=== PATIENT | male | born 1980 | race Caucasian/White ===

== ENCOUNTER 2016-10-17 19:39 | Inpatient (IN) | payer BC, OTHER ==
[~2016-10-17] VITALS: Ht 172.7 cm; Wt 94.1 kg
[2016-10-17] MEDS ORDERED: SOD CHLORIDE 0.9% 1,000 ML IV STA (22:38)
[2016-10-17] MEDS ORDERED: ONDANSETRON 4 MG INJ IV STA (22:38)
--- NOTE | 2016-10-17 22:50 | ERD ---
ER Documentation Chief Complaint Date/Time DATE: 10/17/16 TIME: 22:45 Chief Complaint body pain today HPI 36-year-old male presents here in emergency department for complaints of bodyaches chills Fernando muscle pains started 2 days ago worse today. Patient says cramping all over the body and in the muscles, 4/10 scale, accompanied with sweating. Patient drank a lot of water but became nauseous. Patient denies any abdominal pain, flank pain. Patient denies any discolored urine. Patient denies hematuria or dysuria. Patient denies any diarrhea or constipation. Patient denies any cough shortness of breath or wheezing. Patient denies any chest. Patient denies any dyspnea on exertion or dyspnea on lying down. Patient denies any dizziness. Patient states that he has been working and reviewed at this time for the last 3 days, has history of of frequent heat exhaustion, also patient just started to take Vyvanse again after being off it for 3 weeks. ROS All systems reviewed and are negative except as per history of present illness. Medications Home Meds Reported Medications [none] Unknown Strength No Conflict Check 10/17/16 Allergies Allergies: Coded Allergies: No Known Allergy (Unverified , 10/17/16) PMhx/Soc History of Surgery: Yes (SHOULDER SX) Anesthesia Reaction: No Hx Neurological Disorder: No Hx Respiratory Disorders: No Hx Cardiac Disorders: Yes (HTN) Hx Psychiatric Problems: No Hx Miscellaneous Medical Probl: No Hx Alcohol Use: Yes (SOCIALLY) Hx Substance Use: No Hx Tobacco Use: No Smoking Status: Never smoker FmHx Family History: No coronary disease, No diabetes, No other Physical Exam Vitals Vital Signs Date Time Temp Pulse Resp B/P Pulse Ox O2 Delivery O2 Flow Rate FiO2 10/17/16 19:41 98.3 88 20 148/90 100 Physical Exam GENERAL: The patient is well developed and appropriate for usual state of health, in no apparent distress. Noted cold and clammy skin, sweating. CHEST: Clear to auscultation bilaterally. There are no rales, wheezes or rhonchi. HEART: Regular rate and rhythm. No murmurs, clicks, rubs or gallops. No S3 or S4. ABDOMEN: Soft, nontender and nondistended. Good bowel sounds. No rebound or guarding. No gross peritonitis. No gross organomegaly or masses. No Reese sign or McBurney point tenderness. BACK: No midline or flank tenderness. EXTREMITIES: Equal pulses bilaterally. There is no peripheral clubbing, cyanosis or edema. No focal swelling or erythema. Full range of motion. Grossly neurovascularly intact. NEURO: Alert and oriented. Cranial nerves 2-12 intact. Motor strength in all 4 extremities with 5/5 strength. Sensation grossly intact. Normal speech and gait. SKIN: With some bluish discoloration in the bilateral hands and bilateral lower extremities noted. There is no apparent rash or petechia. The skin is warm and dry. HEMATOLOGIC AND LYMPHATIC: There is no evidence of excessive bruising or lymphedema. No gross cervical, axillary, or inguinal lymphadenopathy. Result Diagram: 10/17/16225410/17/162254 Results 24 hrs Laboratory Tests Test 10/17/16 22:55 White Blood Count 11.410^3/ul Red Blood Count 5.5010^6/ul Hemoglobin 16.8g/dl Hematocrit 49.7% Mean Corpuscular Volume 90.4fl Mean Corpuscular Hemoglobin 30.5pg Mean Corpuscular Hemoglobin Concent 33.8g/dl Red Cell Distribution Width 13.0% Platelet Count 46842^3/UL Mean Platelet Volume 9.5fl Neutrophils % 77.5% Lymphocytes % 11.2% Monocytes % 10.4% Eosinophils % 0.2% Basophils % 0.2% Nucleated Red Blood Cells % 0.0/100WBC Neutrophils # 8.810^3/ul Lymphocytes # 1.310^3/ul Monocytes # 1.210^3/ul Eosinophils # 0.010^3/ul Basophils # 0.010^3/ul Nucleated Red Blood Cells # 0.010^3/ul Erythrocyte Sedimentation Rate 6mm/Hr Sodium Level 129mmol/L Potassium Level 3.7mmol/L Chloride Level 85mmol/L Carbon Dioxide Level 25mmol/L Anion Gap 23 Blood Urea Nitrogen 36mg/dl Creatinine 2.21mg/dl Glucose Level 135mg/dl Calcium Level 10.5mg/dl Total Bilirubin 0.8mg/dl Direct Bilirubin 0.00mg/dl Indirect Bilirubin 0.8mg/dl Aspartate Amino Transf (AST/SGOT) 240IU/L Alanine Aminotransferase (ALT/SGPT) 155IU/L Alkaline Phosphatase 72IU/L Creatine Kinase 79505SS/L Troponin I < 0.012ng/ml C-Reactive Protein 4.0mg/dl Total Protein 9.9g/dl Albumin 5.5g/dl Globulin 4.40g/dl Albumin/Globulin Ratio 1.25 Lipase 88U/L Current Medications Medications (Trade) Dose Ordered Sig/Georgina Route PRN Reason Start Time Stop Time Status Last Admin Dose Admin Sodium Chloride (NS) 1,000 ml @ 1,000 mls/hr Q1H STAT IV 10/17/16 22:38 10/17/16 23:37 DC 10/17/16 22:55 Ondansetron HCl 4 mg 4 mg ONCE STAT IV 10/17/16 22:38 10/17/16 22:40 DC 10/17/16 22:55 Sodium Chloride 1,000 ml @ 1,000 mls/hr Q1H ONCE IV 10/18/16 00:30 10/18/16 01:29 DC 10/18/16 00:21 Sodium Chloride (NS) 2,000 ml @ 1,000 mls/hr Q2H ONCE IV 10/18/16 00:30 10/18/16 02:29 Normal saline IV bolus was given here in emergency department for rehydration, patient tolerated IV fluids.Patient was given Zofran here in the emergency department. After treatment, patient was able to tolerate po fluids here in the emergency department without any vomiting. There is no signs and symptoms of dehydration. EKG was done, read by me and is sinus tachycardia at 111 bpm, normal axis, there is no ST changes or changes in the EKG that indicates any cardiac emergencies at this time. Patient's EKG was also reviewed by Dr. Wilkins. Impression: no acute findings on EKG Procedures/MDM Medical decision making: Patient symptoms are most likely consistent with rhabdomyolysis. Possibly caused by heat exhaustion, also from taking Vyvanse which is a form of amphetamine. Patient was rehydrated here in emergency department, had elevated creatinine and electrolyte imbalance from dehydration. Total creatinine kinase is 13,0059, markedly elevated, 4 L of IV fluids normal saline was given here in emergency department as per discussion with my attending physician, Dr. Wilkins, patient will the admitted to the hospital for further rehydration and treatment. Departure Diagnosis: Primary Impression: Rhabdomyolysis Rhabdomyolysis type: non-traumatic Qualified Code: M62.82 - Non-traumatic rhabdomyolysis Condition: Stable BLESSING COLVIN NP October 17, 2016 22:50
[2016-10-17 23:13] LABS: ADD SCAN DIFF NO
[2016-10-17 23:20] LABS: BASOPHILS % 0.2 % (0.0-2.0); EOSINOPHILS % 0.2 % (0.0-7.0); HEMATOCRIT 49.7 % (42.0-52.0); HEMOGLOBIN 16.8 g/dl (14.0-18.0); LYMPHOCYTES # 1.3 10^3/ul (0.8-2.9); LYMPHOCYTES % 11.2 % (15.0-51.0); MEAN CORPUSCULAR HEMOGLOBIN 30.5 pg (29.0-33.0); MEAN CORPUSCULAR HGB CONC 33.8 g/dl (32.0-37.0); MEAN CORPUSCULAR VOLUME 90.4 fl (82.0-101.0); MEAN PLATELET VOLUME 9.5 fl (7.4-10.4); MONOCYTE # 1.2 10^3/ul (0.3-0.9); MONOCYTES % 10.4 % (0.0-11.0); NEUTROPHIL # 8.8 10^3/ul (1.6-7.5); NEUTROPHILS % 77.5 % (39.0-77.0); PLATELET COUNT 284 10^3/UL (140-415); WHITE BLOOD COUNT 11.4 10^3/ul (4.8-10.8)
[2016-10-17 23:41] LABS: ALBUMIN 5.5 g/dl (3.3-4.9); ALBUMIN/GLOBULIN RATIO 1.25; BILIRUBIN,INDIRECT 0.8 mg/dl (0-1.1); BILIRUBIN,TOTAL 0.8 mg/dl (0.2-1.3); CALCIUM 10.5 mg/dl (8.4-10.2); CREATININE 2.21 mg/dl (0.61-1.24); POTASSIUM 3.7 mmol/L (3.5-5.1); TOTAL PROTEIN 9.9 g/dl (6.1-8.1)
[2016-10-18] VITALS (10 sets, daily range): BP systolic 138–162; BP diastolic 71–92; PULSE 93–106; RESP 18; TEMP 98.3; Ht 172.7 cm; Wt 94.1 kg
[2016-10-18] MEDS ORDERED: SOD CHLORIDE 0.9% 2,000 ML IV ONE (00:30)
[2016-10-18] MEDS ORDERED: SOD CHLORIDE 0.9% 1,000 ML IV ONE (00:30)
[2016-10-18 02:29] LABS: ADD UMIC YES; URINE BILIRUBIN (Dip) NEGATIVE (NEGATIVE); URINE BLOOD (Dip) 3+ (NEGATIVE); URINE COLOR LT. YELLOW (YELLOW); URINE GLUCOSE (Dip) NEGATIVE (NEGATIVE); URINE KETONES (Dip) NEGATIVE (NEGATIVE); URINE LEUKOCYTE ESTERASE (Dip) NEGATIVE (NEGATIVE); URINE NITRITE (Dip) NEGATIVE (NEGATIVE); URINE TOTAL PROTEIN (Dip) 2+ (NEGATIVE); URINE UROBILINOGEN (Dip) 0.2 E.U./dL (0.1-1.0)
[2016-10-18 02:47] LABS: MUCUS,URINE MODERATE; SQUAMOUS EPITHELIAL CELL,UR FEW
[2016-10-18] MEDS ORDERED: LISI20TA11 PO (03:25)
[2016-10-18] MEDS ORDERED: ALPR0.5T6 PO (03:28)
[2016-10-18] MEDS ORDERED: LISD70CA5 PO (03:30)
[2016-10-18] MEDS ORDERED: IBUP200C11 PO (03:36)
[2016-10-18] MEDS ORDERED: MULTI PO (03:36)
[2016-10-18 03:39] LABS: BARBITURATES NEGATIVE (NEGATIVE); BENZODIAZEPINES POSITIVE (NEGATIVE); CANNABINOIDS NEGATIVE (NEGATIVE); COCAINE NEGATIVE (NEGATIVE); OPIATES NEGATIVE (NEGATIVE)
[2016-10-18] MEDS ORDERED: ONDANSETRON 4 MG INJ IV PRN (05:30)
[2016-10-18] MEDS ORDERED: ZOLPIDEM 5 MG TAB PO PRN (05:30)
[2016-10-18] MEDS ORDERED: NACL 0.9% 3 ML SYG IV SCH (05:30)
[2016-10-18] MEDS ORDERED: ACETAMINOPHEN 325 MG TAB PO PRN (05:30)
[2016-10-18] MEDS: SOD CHLORIDE 0.9% 1,000 ML IV SCH ×4 (05:55→20:17)
--- NOTE | 2016-10-18 05:58 | HP ---
Date/Time of Note Date/Time of Note DATE: 10/18/16 TIME: 05:36 Assessment/Plan VTE Prophylaxis VTE Prophylaxis Intervention: other (Hold at this time secondary to rhabdomyolysis) Lines/Catheters IV [facility]ter Type (from [email or web address] Peripheral IV Central line still needed: No Urinary Cath still in place: No Assessment/Plan Chief Complaint/Hosp Course This is a 36-year-old male being admitted to telemetry for: #1 rhabdomyolysis: Secondary likely to heat exhaustion versus amphetamine use. CK total 13,500. 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 He also has recently started Vyvanse after not taking it for a couple of weeks. In the ED patient received fluid resuscitation with normal saline, will continue normal saline at 200 cc an hour. Will check electrolytes every 6 hours we will keep a close eye on potassium. Will also order repeat CK total. #2 FREEDOM: Creatinine 2.2 this likely appears to be acute in nature though we do not have a previous result. Continue IV fluid management at this time and continue to monitor kidney function. #3 sinus tachycardia: Likely secondary to initial pain on admission, EKG also shows sinus tach with no ST or T-wave abnormalities. We will continue to follow on telemetry. #4 elevated LFTs. Patient at this time is not complaining of any right upper quadrant pain. Does not appear to be any hepatomegaly appreciated on exam. Repeat CMP to see if the values begin to trend down. Consider hepatitis panel and right upper quadrant ultrasound as clinically indicated #5 hypertension: We will hold lisinopril at this time secondary to elevated creatinine. Hydralazine as needed #6 anxiety: Xanax as needed #7 insomnia: Zolpidem 5 mg as needed #8 ADHD: We will hold Vyvanse at this time, this also could be contributing to this as amphetamines can cause rhabdo. #9 DVT and GI prophylaxis, at the present time will hold off on any chemical and mechanical DVT prophylaxis secondary to patient's rhabdomyolysis, no GI reflux is indicated at this time. Problems: HPI/ROS Admit Date/Time Admit Date/Time 10/18/2016 Hx of Present Illness 36-year-old male presents here in emergency department for complaints of bodyaches chills Saturday muscle pains started 2 days ago worse today. Patient says cramping all over the body and in the muscles, 4/10 scale, accompanied with sweating. Patient drank a lot of water but became nauseous. Patient denies any abdominal pain, flank pain. Patient denies any discolored urine. Patient denies hematuria or dysuria. Patient denies any diarrhea or constipation. Patient denies any cough shortness of breath or wheezing. Patient denies any chest. Patient denies any dyspnea on exertion or dyspnea on lying down. Patient denies any dizziness. Patient has a history of ADD and he also has been taking Vyvanse which she recently just restarted after not having taken it for 3 weeks. Allergies: NKDA Medications: See AUG ROS Const: Negative except for what is mentioned in the HPI Eyes : No pain discharge or redness or change in visual acuity ENT: No pain, sore throat, congestion, congestion, dysphagia or discharge Respiratory: No shortness of breath, cough, sputum, wheezing, or pleuritic pain Cardiovascular: No chest pain, palpitation, PND, or edema GI : no change in appetite, abdominal pain, nausea, vomiting, diarrhea, constipation, or change in the color his stool Genitourinary: No dysuria, hematuria, flank pain , discharge or CVA tenderness Musculoskeletal: Negative except for what was mentioned in the HPI Skin: No rash, bruising or hives Neuro: No headache, dizziness, syncope, seizure, focal weakness Endocrine: No polyuria, polydipsia, temperature intolerance Psych: No hallucination, depression, anxiety or suicidal ideation PMH/Family/Social Past Medical History ADD, anxiety, hypertension, insomnia Past Surgical History Right shoulder surgery Family History Significant Family History: hypertension Social History Alcohol Use: occasionally Smoking Status: Never smoker Drug Use: none Exam/Review of Systems Vital Signs Vitals Vital Signs Date Time Temp Pulse Resp B/P Pulse Ox O2 Delivery O2 Flow Rate FiO2 10/18/16 04:10 98.3 104 17 162/96 100 Room Air Intake and Output 10/17/16 10/17/16 10/18/16 15:00 23:00 07:00 Output Total 700 ml Balance -700 ml Exam Exam General: Patient is well-developed well-nourished male presently in no acute distress The patient is alert oriented -3 HEENT: Atraumatic, normocephalic. The pupils are equal, round and reactive. Extraocular motor are intact Neck: Supple with full range of motion. No rigidity or meningismus Chest: Nontender Lungs: Clear to auscultation bilaterally no crackles rales or wheezing Heart: Normal S1-S2, Regular rhythm and rate. No murmur, Abdomen: Soft , nontender, nondistended , bowel sounds are present. No guarding no rebound tenderness , No masses or organomegaly. No costovertebral temporal angle mass Extremities: Normal to inspection, no edema no cyanosis, nontender to palpation , no swelling noted lower extremities, bilateral lower extremities do not appear tight Neurologic: Normal mental status, speech normal, cranial nerves II through XII are intact, motor and sensory are intact, no focal weakness Additional Comments EKG: Sinus tachycardia at 111 bpm, no ST-T wave abnormalities noted Labs Result Diagram: 10/17/16225410/17/162254 Medications Medications Current Medications Sodium Chloride (NS) 1,000 ml @ 200 mls/hr Q5H IV ; Start 10/18/16 at 05:17; Status UNV Ondansetron HCl (Zofran Inj) 4 mg Q6H PRN IV NAUSEA AND/OR VOMITING; Start 10/18 at 05:30; Status UNV Acetaminophen (Tylenol Tab) 650 mg Q6H PRN PO PAIN LEVEL 1-3 OR FEVER; Start at 05:30; Status UNV Zolpidem Tartrate (Ambien) 5 mg QHS PRN PO INSOMNIA; Start 10/18/16 at 05:30; Status UNV LESLIE DUMONT October 18, 2016 05:53
[2016-10-18] MEDS ORDERED: hydrALAzine 20 MG INJ IV PRN (06:00)
[2016-10-18] MEDS ORDERED: ALPRAZOLAM 0.5 MG TAB PO SCH (09:00)
[2016-10-18] MEDS ORDERED: LORAZEPAM 2 MG INJ IV ONE (10:30)
[2016-10-18] MEDS ORDERED: ALPRAZOLAM 0.5 MG TAB PO PRN (11:00)
[2016-10-18 11:48] LABS: ALBUMIN 4.8 g/dl (3.3-4.9); POTASSIUM 3.8 mmol/L (3.5-5.1)
[2016-10-18 11:50] LABS: CREATININE 1.04 mg/dl (0.61-1.24); TOTAL PROTEIN 7.2 g/dl (6.1-8.1)
[2016-10-18 11:51] LABS: CALCIUM 8.4 mg/dl (8.4-10.2)
[2016-10-18 11:55] LABS: BILIRUBIN,INDIRECT 0.6 mg/dl (0-1.1); BILIRUBIN,TOTAL 0.6 mg/dl (0.2-1.3)
--- NOTE | 2016-10-18 13:29 | CONS ---
DATE OF ADMISSION: 10/18/2016 DATE OF CONSULTATION: 10/18/2016 REFERRING PHYSICIAN: Dr. Marcano. REASON FOR CONSULTATION: Acute kidney injury, acute rhabdomyolysis. HISTORY OF PRESENT ILLNESS: This is a 36-year-old male who presented to the emergency room with a c omplaint of body aches, chills, emotional pain started 2 days ago. The patient states he started guerin ving cramping all over his body in the muscles, 4/10. He drank a lot of water, become nauseous. He denies any abdominal pain, fever and chills. The patient has a history of ADD and has been taking Vyvanse which he recently just started after not having taken for 3 weeks. The patient is noted to have acute kidney injury with a creatinine of 2.2, BUN of 36, potassium was normal, but he was hypon atremic with sodium of 129. The patient had a CK total of 13,059. He was admitted to the med/surg floor, has been started on IV fluid hydration and renal has been consulted for acute kidney injury, acute rhabdomyolysis and severe hyponatremia. At the time of my evaluations, now the patient feels much better. He denies any nausea, but he is s till having this intermittent muscle cramps and pain. Denies any chest pain, palpitation, headache, dizziness, blurry vision, constipation, diarrhea, dysuria, increased urinary frequency. REVIEW OF SYSTEMS: Positive for generalized body aches, muscle aches, fever or chills. Other revie w of systems has been obtained and is negative except what is mentioned in the history of present il lness. PAST MEDICAL HISTORY: History of anxiety, ADD, hypertension, insomnia. PAST SURGICAL HISTORY: Right shoulder surgery. FAMILY HISTORY: Hypertension. SOCIAL HISTORY: Occasionally uses alcohol and never smoked. No recreational drug use as per the [place]. PHYSICAL EXAMINATION: VITAL SIGNS: Temperature 98.2, heart rate 99, respiration 18, blood pressure 139/73. Patient has b een tachycardic up to heart rate 110, saturation 99% on room air. GENERAL: Awake, alert, in moderate distress. HEENT: Normal. Oropharynx clear. NECK: Supple, no JVD, no lymphadenopathy. LUNGS: Clear to auscultation. No crackles, no wheezes. HEART: S1, S2, tachycardia, no murmur. ABDOMEN: Soft, nontender, nondistended. Bowel sounds are present. EXTREMITIES: No clubbing, cyanosis, or edema. NEUROLOGICAL: Nonfocal, intact. PSYCHIATRIC: Appropriate affect and mood. LABORATORY DATA/DIAGNOSTIC IMAGING: Urine toxicology positive for amphetamines and benzodiazepines. Sodium 129, potassium 3.7, chloride 85, bicarbonate 25, BUN 36, creatinine 2.2, glucose 135, calciu m 10.5. LFTs are slightly elevated. A CK total 13,059, albumin 5.5. WBC 11.4, hemoglobin 16.8, javi telet count 284, urinalysis is negative for any infections, 3+ hemoglobin, 2+ total protein. IMPRESSION: This is a 36-year-old male who presented with: 1. Generalized body aches, muscle aches, fever, chills and is noted to have acute rhabdomyolysis an d renal has been consulted for: 2. Acute kidney injury, likely secondary to acute rhabdomyolysis with a creatinine of 2.2 on admiss ion. 3. Acute rhabdomyolysis with a CK total of 13,059. 4. Acute transaminitis with elevated liver enzymes secondary to acute rhabdomyolysis. 5. Sinus tachycardia secondary to acute rhabdomyolysis. 6. Leukocytosis secondary to acute rhabdomyolysis. 7. History of anxiety, hypertension, insomnia. The patient has acute rhabdomyolysis with a CK total of 13,059, he also had hyponatremia, sodium 129 , creatinine 2.2 on admission. PLAN: 1. I will continue the patient on IV fluid hydration and has had at 200 mL per hour expecting the p atient's BUN and creatinine to improve and also monitor the CK total every 6 hours. 2. The patient does not need any renal ultrasound at this point because there is no obvious history of chronic kidney disease. 3. I will order some urine studies including a urine sodium, urine protein, urine creatinine and ur ine eosinophils to rule out any other acute interstitial nephritis. 4. I am expecting the patient's renal functions to improve with IV fluid hydrations. Thank you, Dr. Marcano for this consultation. I will continue to follow this patient along with you. Dictated By: REBECCA SALMON MD, KP/WENDY Conf#: [id number] DID#: [id number]
[2016-10-18 17:22] LABS: ALBUMIN 4.1 g/dl (3.3-4.9)
[2016-10-18 17:25] LABS: ALBUMIN/GLOBULIN RATIO 1.36; BILIRUBIN,INDIRECT 0.5 mg/dl (0-1.1); BILIRUBIN,TOTAL 0.5 mg/dl (0.2-1.3); CALCIUM 8.6 mg/dl (8.4-10.2); CREATININE 0.94 mg/dl (0.61-1.24); TOTAL PROTEIN 7.1 g/dl (6.1-8.1)
[2016-10-19] VITALS (8 sets, daily range): BP systolic 141–148; BP diastolic 81–93; PULSE 68–93; RESP 16–18
[2016-10-19] MEDS: SOD CHLORIDE 0.9% 1,000 ML IV SCH ×3 (01:17→11:58)
[2016-10-19 01:36] LABS: ALBUMIN 4.1 g/dl (3.3-4.9); ALBUMIN/GLOBULIN RATIO 1.41; BILIRUBIN,INDIRECT 0.5 mg/dl (0-1.1); BILIRUBIN,TOTAL 0.5 mg/dl (0.2-1.3); CALCIUM 8.8 mg/dl (8.4-10.2); CREATININE 0.81 mg/dl (0.61-1.24); POTASSIUM 4.1 mmol/L (3.5-5.1)
--- NOTE | 2016-10-19 12:09 | CONS ---
Date/Time of Note Date/Time of Note DATE: 10/19/16 TIME: 12:07 Assessment/Plan Assessment/Plan Additional Assessment/Plan 1. Generalized body aches, muscle aches, fever, chills and is noted to have acute rhabdomyolysis and renal has been consulted for: 2. Acute kidney injury, likely secondary to acute rhabdomyolysis with a creatinine of 2.2 on admission. 3. Acute rhabdomyolysis with a CK total of 13,059. 4. Acute transaminitis with elevated liver enzymes secondary to acute rhabdomyolysis. 5. Sinus tachycardia secondary to acute rhabdomyolysis. 6. Leukocytosis secondary to acute rhabdomyolysis. 7. History of anxiety, hypertension, insomnia. The patient has acute rhabdomyolysis with a CK total of 13,059, he also had hyponatremia, sodium 129, creatinine 2.2 on admission. PLAN: cr normal, on IVF hydation Ck improving Ok to d/c advised to drink more water and fluids Consultation Date/Type/Reason Admit Date/Time October 18, 2016 at 02:35 Type of Consultation: NEPHROLOGY Reason for Consultation FREEDOM, acute rhabomyolysis Referring Provider: MEEK BURKETT 24 HR Interval Summary Free Text/Dictation doing ok,. Cr normal< CK improving, BP stable Exam/Review of Systems Vital Signs Vitals Vital Signs Date Time Temp Pulse Resp B/P Pulse Ox O2 Delivery O2 Flow Rate FiO2 10/19/16 11:21 98.1 82 18 145/81 97 10/18/16 06:50 Room Air Intake and Output 10/18/16 10/18/16 10/19/16 15:00 23:00 07:00 Intake Total 1600 ml 1300 ml Output Total 2350 ml 800 ml 900 ml Balance -2350 ml 800 ml 400 ml Exam GENERAL: Awake, alert, in moderate distress. HEENT: Normal. Oropharynx clear. NECK: Supple, no JVD, no lymphadenopathy. LUNGS: Clear to auscultation. No crackles, no wheezes. HEART: S1, S2, tachycardia, no murmur. ABDOMEN: Soft, nontender, nondistended. Bowel sounds are present. EXTREMITIES: No clubbing, cyanosis, or edema. NEUROLOGICAL: Nonfocal, intact. PSYCHIATRIC: Appropriate affect and mood. Results Result Diagram: 10/17/16 2255 10/19/16 0043 Results 24 hrs Laboratory Tests Test 10/18/16 12:30 10/18/16 16:50 10/19/16 00:43 10/19/16 06:35 Urine Eosinophils % 0.0 Urine Random Creatinine 55.74 Urine Random Sodium 60 Urine Total Protein 27.0 H Sodium Level 137 135 Potassium Level 4.0 4.1 Chloride Level 103 105 Carbon Dioxide Level 24 23 Anion Gap 14 11 Blood Urea Nitrogen 18 17 Creatinine 0.94 0.81 Glucose Level 106 102 Calcium Level 8.6 8.8 Total Bilirubin 0.5 0.5 Direct Bilirubin 0.00 0.00 Indirect Bilirubin 0.5 0.5 Aspartate Amino Transf (AST/SGOT) 185 H 178 H Alanine Aminotransferase (ALT/SGPT) 111 H 119 H Alkaline Phosphatase 47 51 Total Protein 7.1 7.0 Albumin 4.1 4.1 Globulin 3.00 2.90 Albumin/Globulin Ratio 1.36 1.41 Creatine Kinase 5416 #H Medications Medications Current Medications Sodium Chloride (NS) 1,000 ml @ 200 mls/hr Q5H IV Last administered on 11:58; Admin Dose 200 MLS/HR; Start 10/18/16 at 05:17 Ondansetron HCl (Zofran Inj) 4 mg Q6H PRN IV NAUSEA AND/OR VOMITING; Start 10/18 at 05:30 Acetaminophen (Tylenol Tab) 650 mg Q6H PRN PO PAIN LEVEL 1-3 OR FEVER; Start at 05:30 Zolpidem Tartrate (Ambien) 5 mg QHS PRN PO INSOMNIA Last administered on 21:29; Admin Dose 5 MG; Start 10/18/16 at 05:30 Hydralazine HCl (Apresoline) 10 mg Q6H PRN IV ELEVATED BLOOD PRESSURE; Start at 06:00 Alprazolam (Xanax) 0.5 mg BID PRN PO ANXIETY; Start 10/18/16 at 11:00 REBECCA SALMON MD October 19, 2016 12:09
--- NOTE | 2016-10-19 12:17 | PDOCDIS ---
Discharge Instructions DIAGNOSIS Discharge Diagnosis: Rhabdomyolysis CONDITION Patient Condition: Good HOME CARE INSTRUCTIONS: Diet Instructions: RegularSpecial Diet: Regular ACTIVITY: Activity Restrictions: Slowly Increase Activity FOLLOW UP/APPOINTMENTS Appointments Primary care 1 week. [facility]URTON [facility] October 19, 2016 12:17
--- NOTE | 2016-10-19 13:28 | DS ---
DATE OF ADMISSION: 10/18/2016 DATE OF DISCHARGE: 10/19/2016 DISCHARGE DIAGNOSES: Rhabdomyolysis and acute renal failure. SUMMARY: This is a 36-year-old gentleman, admitted originally on 10/18/2016 with generalized weakne ss, lethargy, cramping all over his body, and found to have significant rhabdomyolysis. His urine w as positive for amphetamines. The patient states he was also in a dehydrated state. He states this has happened several times in the past. He received aggressive hydration, with creatinine returnin g to normal and creatinine kinase dropping from 13,000 to 5,000. He denied any nausea or vomiting, had good p.o. intake, was seen by nephrology and cleared. He still has mild transaminitis, which I expect to continue to improve. Labs on discharge: Creatinine 0.8, BUN 18, creatinine kinase 5416, AST 178, ALT 119. Alkaline phosp hatase within normal limits. White count normal. Hemoglobin 16.8. ESR 6. Chest x-ray was not per formed on admission. DISCHARGE MEDICATIONS: 1. I have advised the patient to stop his lisinopril until he sees his primary care physician in 1 weeks' time. 2. Recommended continued aggressive p.o. intake. 3. Followup with primary care physician to be arranged by our team. Dictated By: CARON WALTERS/WENDY Conf#: [id number] DID#: [id number]
== END 2016-10-19 14:43 | disposition home or self-care (01) | DRG 558 ==
LOC: FTE 19:39 → TEL 10-18 02:35
PROVIDERS: ADMIT Family Medicine; ATTEND Family Medicine
DX: M62.82 Rhabdomyolysis (principal); N17.9 Acute kidney failure, unspecified; E87.1 Hypo-osmolality and hyponatremia; T67.5XXA Heat exhaustion, unspecified, initial encounter
CPT/HCPCS: 36415; 80053; 80307; 81001; 81003; 82550; 83690; 84155; 84300; 84484; 85025; 85651; 86140; 89190; 93005; 96374; J2060; J2405; J7030